=== PATIENT | male | born 1950 | race Caucasian/White ===

== ENCOUNTER 2021-11-08 01:16 | Inpatient (IN) | payer MEDICARE, OTHER ==
[2021-11-08] MEDS ORDERED: Ondansetron PF 4 MG/2 ML Vial ONE ×3 (01:40→13:28)
[2021-11-08] MEDS ORDERED: Morphine 4 MG/ML VIAL ONE ×3 (01:40→05:28)
[2021-11-08 02:15] LABS: ALT (SGPT) 223 U/L (8-55); AST (SGOT) 192 U/L (5-34); Albumin 4.3 g/dL (3.4-4.8); Alkaline Phosphatase 637 U/L (40-110); Anion Gap 20 mmol/L (10-20); BUN (Urea Nitrogen) 35 mg/dL (8.4-25.7); Bilirubin, Total 2.8 mg/dL (0.2-1.2); Calc. Creatinine Clearance 0 mL/min (70-130); Calcium 9.7 mg/dL (7.8-10.44); Carbon Dioxide 24 mmol/L (23-31); Chloride 101 mmol/L (98-107); Globulin 3.9 g/dL (2.4-3.5); Glucose 175 mg/dL (80-115); Hemoglobin 14.7 g/dL (14.0-18.0); Mean Corpuscular HGB CONC 32.7 g/dL (32.0-36.0); Mean Corpuscular Volume 85.7 fL (78.0-98.0); Mean Platelet Volume 6.9 fL (7.4-10.4); Platelet Count 563 thou/uL (130-400); Potassium 4.7 mmol/L (3.5-5.1); Protein, Total 8.2 g/dL (5.8-8.1); RBC Distribution Width 12.1 % (11.5-14.5); Red Blood Cell (RBC) Count 5.24 mill/uL (4.70-6.10); Sodium 140 mmol/L (136-145)
[2021-11-08 02:26] LABS: Bacteria/HPF None Seen HPF (None Seen); Bilirubin Negative (Negative); Blood, Urine 3+ (Negative); Clarity Turbid (Clear); Glucose, Urine (Dipstick) Normal (Negative); Ketone, Urine Trace mg/dL (Negative); Leukocyte Negative Leu/uL (Negative); Nitrite Negative (Negative); Protein, Urine (Dipstick) 100 mg/dL (Neg-Trace); RBC/HPF Greater than 50 HPF (0-3); Specific Gravity, Urine 1.022 (1.002-1.036); Squamous Epithelial 0-3 HPF (0-3); Urobilinogen 3 mg/dL (Less than 2)
[2021-11-08 02:29] LABS: Lipase 2272 U/L (8-78)
[2021-11-08 02:30] LABS: Band 36 % (5-11); Eosinophils 1 % (0-10); Lymphocytes 3 % (21-51); MDiff Complete? YES; Monocytes 3 % (0-10); Neutrophil 56 % (42-75); White Blood Cell (WBC) Count 24.6 thou/uL (4.8-10.8)
[2021-11-08] MEDS ORDERED: Mag-Al 1200 mg/1200 mg/30 ML UDCUP ONE (04:13)
[2021-11-08] MEDS ORDERED: Lidocaine Viscous Sol 2% 15 ml UD Cup ONE (04:13)
[2021-11-08] MEDS ORDERED: Vancomycin 1 GM/200 ML BAG ONE (05:28)
[2021-11-08] MEDS ORDERED: Sodium Chloride 0.9% 1,000 ML IV SCH (06:00)
[2021-11-08] MEDS ORDERED: Ondansetron PF 4 MG/2 ML Vial IVP PRN (06:53)
[2021-11-08] MEDS ORDERED: Morphine 2 MG/ML VIAL SLOW IVP PRN (06:53)
[2021-11-08] MEDS ORDERED: Ondansetron ODT 4 MG TAB PO PRN (06:54)
[2021-11-08] MEDS ORDERED: Acetaminophen 325 MG TAB PO PRN (07:52)
[2021-11-08] MEDS ORDERED: Dextrose 50% Abboject 50 ML SYRINGE SLOW IVP PRN (07:52)
[2021-11-08] MEDS ORDERED: HumaLOG 300 UNITS/3 ML VIAL SC PRN (07:52)
[2021-11-08] MEDS ORDERED: Dextrose 5% in Water 1,000 ML IV PRN (07:52)
[2021-11-08] MEDS ORDERED: Benzonatate 100 MG CAP PO PRN (07:52)
[2021-11-08] MEDS ORDERED: Acetaminophen 650 MG Suppository PR PRN (07:52)
[2021-11-08] MEDS: Heparin 5,000 UNITS/ML VIAL SC SCH ×3 (08:44→20:25)
[2021-11-08] MEDS: Sodium Chloride 0.9% 1,000 ML IV SCH ×2 (08:44→19:36)
[2021-11-08 08:47] LABS: Lactic Acid 2.1 mmol/L (0.5-2.2)
[2021-11-08] MEDS ORDERED: Heparin 5,000 UNITS/ML VIAL SC SCH (09:00)
[2021-11-08] MEDS ORDERED: Pantoprazole 40 MG VIAL IVP SCH (09:00)
[2021-11-08 09:19] LABS: SARS-CoV-2 NAA Rapid Test Not Detected (NotDetected)
[2021-11-08 09:55] LABS: Albumin 3.7 g/dL (3.4-4.8)
[2021-11-08 09:57] LABS: Protein, Total 7.4 g/dL (5.8-8.1)
[2021-11-08 09:59] LABS: Bilirubin, Total 3.3 mg/dL (0.2-1.2)
[2021-11-08 10:12] LABS: ALT (SGPT) 274 U/L (8-55); AST (SGOT) 252 U/L (5-34); Alkaline Phosphatase 530 U/L (40-110); Bilirubin, Direct 2.3 mg/dL (0.1-0.3)
[2021-11-08 10:16] LABS: Lipase 3015 U/L (8-78)
[2021-11-08] MEDS ORDERED: Lidocaine 1% w/Epinephrine 1:100K 20 ML VIAL ONE (10:49)
[2021-11-08] MEDS ORDERED: Bupivacaine PF 0.5% 30 ML VIAL ONE (10:49)
[2021-11-08] MEDS ORDERED: Ioversol 68 % 50 ML VIAL ONE ×2 (10:49→19:05)
[2021-11-08] MEDS ORDERED: Iopamidol 30 ML ONE ×2 (10:50→13:20)
[2021-11-08 10:51] VITALS: BMI 37.3
[2021-11-08] MEDS ORDERED: Fentanyl 250 MCG/5 ML VIAL ONE (11:53)
[2021-11-08 12:21] LABS: Anion Gap 19 mmol/L (10-20); BUN (Urea Nitrogen) 35 mg/dL (8.4-25.7); Calc. Creatinine Clearance 40 mL/min (70-130); Carbon Dioxide 22 mmol/L (23-31); Chloride 101 mmol/L (98-107); Glucose 173 mg/dL (80-115); Potassium 4.6 mmol/L (3.5-5.1); Sodium 137 mmol/L (136-145)
[2021-11-08] MEDS ORDERED: Lidocaine 1% PF 5 ML VIAL ONE (12:32)
[2021-11-08] MEDS ORDERED: Rocuronium Bromide 10 MG/ML (10ML VIAL) ONE (12:32)
[2021-11-08] MEDS ORDERED: Succinylcholine 200 MG/10 ml SYRINGE FS ONE (12:32)
[2021-11-08] MEDS ORDERED: Dexamethasone 20 MG/5 ML VIAL ONE (12:32)
[2021-11-08] MEDS ORDERED: PROPOFOL 200 MG/20 ML VIAL ONE (12:32)
[2021-11-08] MEDS ORDERED: ePHEDrine 50 MG/ML VIAL ONE (12:32)
[2021-11-08] MEDS ORDERED: Indomethacin 50 MG SUPP ONE (13:17)
[2021-11-08] MEDS ORDERED: Vecuronium 10 MG VIAL ONE (13:28)
[2021-11-08] MEDS ORDERED: Glycopyrrolate 0.2 MG/ML 5 ML SYRINGE ONE (13:28)
[2021-11-08] MEDS ORDERED: metroNIDAZOLE 500 MG in Premix Bag 1 BAG IVPB SCH (14:00)
[2021-11-08] MEDS ORDERED: Fentanyl 100 MCG/2 ML VIAL ONE (15:01)
[2021-11-08] MEDS ORDERED: Ondansetron HCl/PF 4 MG/2 ML Vial IVP PRN (15:10)
[2021-11-08] MEDS ORDERED: HYDROmorphone 2 MG/ML VIAL SLOW IVP PRN (15:10)
[2021-11-08] MEDS ORDERED: Promethazine HCl 25 MG/ML VIAL IVPB PRN (15:10)
[2021-11-08] MEDS ORDERED: Promethazine HCl 25 MG/ML VIAL IM PRN (15:10)
[2021-11-08] MEDS: Sodium Chloride 0.45% 1,000 ML IV SCH ×2 (15:59→22:16)
[2021-11-09] MEDS: Sodium Chloride 0.45% 1,000 ML IV SCH ×4 (03:17→20:08)
[2021-11-09] MEDS: Morphine 2 MG/ML VIAL SLOW IVP PRN (03:33)
[2021-11-09 06:28] LABS: Hemoglobin 12.4 g/dL (14.0-18.0); Mean Corpuscular HGB CONC 31.8 g/dL (32.0-36.0); Mean Corpuscular Hemoglobin 27.7 pg (27.0-31.0); Mean Platelet Volume 7.1 fL (7.4-10.4); Platelet Count 427 thou/uL (130-400); RBC Distribution Width 12.1 % (11.5-14.5); Red Blood Cell (RBC) Count 4.47 mill/uL (4.70-6.10)
[2021-11-09 06:44] LABS: Band 11 % (5-11); Lymphocytes 1 % (21-51); MDiff Complete? YES; Monocytes 1 % (0-10); Neutrophil 87 % (42-75)
[2021-11-09 06:53] LABS: ALT (SGPT) 241 U/L (8-55); AST (SGOT) 134 U/L (5-34); Albumin 3.5 g/dL (3.4-4.8); Alkaline Phosphatase 445 U/L (40-110); Anion Gap 16 mmol/L (10-20); BUN (Urea Nitrogen) 42 mg/dL (8.4-25.7); Bilirubin, Total 3.1 mg/dL (0.2-1.2); Calc. Creatinine Clearance 39 mL/min (70-130); Calcium 8.9 mg/dL (7.8-10.44); Carbon Dioxide 21 mmol/L (23-31); Chloride 104 mmol/L (98-107); Globulin 3.6 g/dL (2.4-3.5); Glucose 142 mg/dL (80-115); Lipase 33 U/L (8-78); Potassium 4.6 mmol/L (3.5-5.1); Protein, Total 7.1 g/dL (5.8-8.1); Sodium 136 mmol/L (136-145)
[2021-11-09] MEDS: Heparin 5,000 UNITS/ML VIAL SC SCH ×3 (08:34→20:08)
[2021-11-09] MEDS: Tamsulosin HCl 0.4 MG CAP PO SCH (20:08)
[2021-11-10] MEDS: Morphine 2 MG/ML VIAL SLOW IVP PRN (01:15)
[2021-11-10] MEDS: Sodium Chloride 0.45% 1,000 ML IV SCH ×5 (02:01→23:54)
[2021-11-10 07:30] LABS: Hemoglobin 12.1 g/dL (14.0-18.0); Mean Corpuscular HGB CONC 32.3 g/dL (32.0-36.0); Mean Corpuscular Hemoglobin 28.1 pg (27.0-31.0); Mean Platelet Volume 7.3 fL (7.4-10.4); Platelet Count 430 thou/uL (130-400); RBC Distribution Width 12.2 % (11.5-14.5); White Blood Cell (WBC) Count 20.1 thou/uL (4.8-10.8)
[2021-11-10 07:48] LABS: Phosphorus 2.9 mg/dL (2.3-4.7)
[2021-11-10 07:53] LABS: ALT (SGPT) 148 U/L (8-55); AST (SGOT) 50 U/L (5-34); Albumin 3.2 g/dL (3.4-4.8); Alkaline Phosphatase 345 U/L (40-110); Anion Gap 13 mmol/L (10-20); BUN (Urea Nitrogen) 41 mg/dL (8.4-25.7); Bilirubin, Total 1.1 mg/dL (0.2-1.2); Calc. Creatinine Clearance 43 mL/min (70-130); Calcium 8.7 mg/dL (7.8-10.44); Carbon Dioxide 23 mmol/L (23-31); Chloride 106 mmol/L (98-107); Globulin 3.3 g/dL (2.4-3.5); Glucose 114 mg/dL (80-115); Lipase 58 U/L (8-78); Magnesium 2.1 mg/dL (1.6-2.6); Potassium 4.4 mmol/L (3.5-5.1); Protein, Total 6.5 g/dL (5.8-8.1); Sodium 138 mmol/L (136-145)
[2021-11-10 08:01] LABS: Band 8 % (5-11); Lymphocytes 8 % (21-51); MDiff Complete? YES; Monocytes 3 % (0-10); Neutrophil 81 % (42-75); Platelet Morphology Comment Appears Increased; RBC Morphology Normal
[2021-11-10] MEDS: Heparin 5,000 UNITS/ML VIAL SC SCH ×3 (08:39→20:46)
[2021-11-10] MEDS: Tamsulosin HCl 0.4 MG CAP PO SCH (20:45)
[2021-11-11 06:11] LABS: #Monocytes 0.9 thou/uL (0.11-0.59); #Neutrophils 13.8 thou/uL (1.40-6.50); %Basophils 0.1 % (0.0-1.0); %Lymphocytes 6.3 % (21.0-51.0); %Monocytes 5.8 % (0.0-10.0); %Neutrophils 87.8 % (42.0-75.0); Hemoglobin 11.7 g/dL (14.0-18.0); Mean Corpuscular HGB CONC 33.1 g/dL (32.0-36.0); Mean Corpuscular Hemoglobin 28.5 pg (27.0-31.0); Mean Corpuscular Volume 86.2 fL (78.0-98.0); Mean Platelet Volume 7.7 fL (7.4-10.4); Platelet Count 396 thou/uL (130-400); RBC Distribution Width 12.2 % (11.5-14.5); Red Blood Cell (RBC) Count 4.09 mill/uL (4.70-6.10); White Blood Cell (WBC) Count 15.7 thou/uL (4.8-10.8)
[2021-11-11 06:38] LABS: Anion Gap 15 mmol/L (10-20); BUN (Urea Nitrogen) 36 mg/dL (8.4-25.7); Calc. Creatinine Clearance 46 mL/min (70-130); Calcium 8.9 mg/dL (7.8-10.44); Carbon Dioxide 22 mmol/L (23-31); Chloride 105 mmol/L (98-107); Glucose 87 mg/dL (80-115); Magnesium 1.9 mg/dL (1.6-2.6); Phosphorus 3.6 mg/dL (2.3-4.7); Potassium 4.3 mmol/L (3.5-5.1); Sodium 138 mmol/L (136-145)
[2021-11-11] MEDS ORDERED: hydrALAZINE 20 MG/ML VIAL SLOW IVP PRN (07:55)
[2021-11-11] MEDS ORDERED: Labetalol HCl 100 MG/20 ML VIAL SLOW IVP PRN (07:55)
[2021-11-11] MEDS: Aspirin 300 MG Suppository PR SCH (08:04)
[2021-11-11] MEDS: Heparin 5,000 UNITS/ML VIAL SC SCH ×3 (08:05→21:17)
[2021-11-11] MEDS: Aspirin 81 mg Enteric Coated Tablet PO SCH (08:05)
[2021-11-11] MEDS: Polyethylene Glycol 3350 17 GM Packet PO SCH (08:06)
[2021-11-11] MEDS: Sodium Chloride 0.45% 1,000 ML IV SCH (08:09)
[2021-11-11] MEDS: Sodium Bicarbonate Tab 325 MG TAB PO SCH ×3 (11:30→21:17)
[2021-11-11 12:03] LABS: Creatinine, Urine 46.32 mg/dL (63-166)
[2021-11-11 12:04] LABS: Creatinine, Urine 47.17 mg/dL (63-166); Microalbumin Urine 14.6 mg/dL (0.5-50.0); Microalbumin/Creat Ratio 309.5 mg/g (Less than 30)
[2021-11-11] MEDS ORDERED: Amlodipine 5 MG TAB PO SCH (15:15)
[2021-11-11] MEDS: Tamsulosin HCl 0.4 MG CAP PO SCH (21:17)
[2021-11-12 06:14] LABS: #Lymphocytes 1.1 thou/uL (1.20-3.40); #Monocytes 0.8 thou/uL (0.11-0.59); #Neutrophils 10.3 thou/uL (1.40-6.50); %Basophils 0.1 % (0.0-1.0); %Eosinophils 0.1 % (0.0-10.0); %Lymphocytes 9.2 % (21.0-51.0); %Monocytes 6.8 % (0.0-10.0); %Neutrophils 83.8 % (42.0-75.0); Hemoglobin 11.9 g/dL (14.0-18.0); Mean Corpuscular HGB CONC 32.9 g/dL (32.0-36.0); Mean Corpuscular Hemoglobin 28.4 pg (27.0-31.0); Mean Corpuscular Volume 86.2 fL (78.0-98.0); Mean Platelet Volume 7.1 fL (7.4-10.4); Platelet Count 396 thou/uL (130-400); RBC Distribution Width 12.1 % (11.5-14.5); Red Blood Cell (RBC) Count 4.18 mill/uL (4.70-6.10); White Blood Cell (WBC) Count 12.3 thou/uL (4.8-10.8)
[2021-11-12 06:57] LABS: ALT (SGPT) 87 U/L (8-55); AST (SGOT) 36 U/L (5-34); Albumin 3.2 g/dL (3.4-4.8); Alkaline Phosphatase 289 U/L (40-110); Anion Gap 14 mmol/L (10-20); BUN (Urea Nitrogen) 35 mg/dL (8.4-25.7); Calc. Creatinine Clearance 47 mL/min (70-130); Calcium 8.9 mg/dL (7.8-10.44); Carbon Dioxide 24 mmol/L (23-31); Chloride 104 mmol/L (98-107); Globulin 3.3 g/dL (2.4-3.5); Glucose 93 mg/dL (80-115); Potassium 4.2 mmol/L (3.5-5.1); Protein, Total 6.5 g/dL (5.8-8.1); Sodium 138 mmol/L (136-145)
[2021-11-12] MEDS: Aspirin 300 MG Suppository PR SCH (08:25)
[2021-11-12] MEDS: Sodium Bicarbonate Tab 325 MG TAB PO SCH ×2 (08:26→15:36)
[2021-11-12] MEDS: Aspirin 81 mg Enteric Coated Tablet PO SCH (08:26)
[2021-11-12] MEDS: Heparin 5,000 UNITS/ML VIAL SC SCH ×2 (08:26→15:36)
[2021-11-12] MEDS: Polyethylene Glycol 3350 17 GM Packet PO SCH (08:27)
[2021-11-12] MEDS ORDERED: Amlodipine 5 MG TAB PO SCH (09:00)
[2021-11-12] MEDS ORDERED: Amlodipine 10 MG TAB PO SCH (09:00)
[2021-11-12 12:35] VITALS: BP 171/93; TEMP 97.8
== END 2021-11-12 17:01 | disposition home or self-care (01) | DRG 853 ==
LOC: ERS 01:16 → T4-B 05:55
PROVIDERS: ADMIT Student in an Organized Health Care Education/Training Program; ATTEND Internal Medicine
PROC: 0FT44ZZ Resection of Gallbladder, Percutaneous Endoscopic Approach (ICD-10-PCS; principal; 2021-11-08)
PROC: BF141ZZ Fluoroscopy of Gallbladder, Bile Ducts and Pancreatic Ducts using Low Osmolar Contrast (ICD-10-PCS; 2021-11-08)
PROC: 0FC98ZZ Extirpation of Matter from Common Bile Duct, Via Natural or Artificial Opening Endoscopic (ICD-10-PCS; 2021-11-08)
DX: A41.89 Other specified sepsis (principal); K85.10 Biliary acute pancreatitis without necrosis or infection; N39.0 Urinary tract infection, site not specified; N17.9 Acute kidney failure, unspecified; M62.82 Rhabdomyolysis; K80.66 Calculus of gallbladder and bile duct with acute and chronic cholecystitis without obstruction; E87.2 Acidosis; N18.9 Chronic kidney disease, unspecified; I12.9 Hypertensive chronic kidney disease with stage 1 through stage 4 chronic kidney disease, or unspecified chronic kidney disease; I25.10 Atherosclerotic heart disease of native coronary artery without angina pectoris; R79.89 Other specified abnormal findings of blood chemistry; E11.22 Type 2 diabetes mellitus with diabetic chronic kidney disease; E80.6 Other disorders of bilirubin metabolism; E78.5 Hyperlipidemia, unspecified; R65.20 Severe sepsis without septic shock; G47.30 Sleep apnea, unspecified; M10.9 Gout, unspecified; E11.21 Type 2 diabetes mellitus with diabetic nephropathy; E86.0 Dehydration; E66.9 Obesity, unspecified; D63.1 Anemia in chronic kidney disease; T41.45XA Adverse effect of unspecified anesthetic, initial encounter; N40.1 Benign prostatic hyperplasia with lower urinary tract symptoms; R33.8 Other retention of urine; R31.9 Hematuria, unspecified; Z20.822 Contact with and (suspected) exposure to COVID-19; Z68.37 Body mass index [BMI] 37.0-37.9, adult; Z99.81 Dependence on supplemental oxygen; Z79.82 Long term (current) use of aspirin; Z79.899 Other long term (current) drug therapy; Z79.01 Long term (current) use of anticoagulants; Z79.84 Long term (current) use of oral hypoglycemic drugs; Z88.0 Allergy status to penicillin; Z95.5 Presence of coronary angioplasty implant and graft
CPT/HCPCS: 36415; 36416; 47532; 71045; 74176; 74330; 76705; 76770; 80048; 80053; 81003; 81015; 82043; 82550; 82570; 83605; 83690; 83735; 84100; 84153; 84156; 84300; 84484; 84540; 85025; 87040; 87077; 87086; 87149; 87186; 88304; 93005; 96365; 96368; 96375; 96376; C1713; C9113; J1100; J1610; J1644; J1956; J2270; J2405; J2704; J3010; J3370; J3490; J7050; Q9967; S0020; U0002

== ENCOUNTER 2021-12-22 12:42 | Outpatient (CLI) | payer MEDICARE ==
[2021-12-22 13:27] LABS: Bilirubin Neg (Negative); Blood, Urine 250 (Negative); Clarity Clear (Clear); Glucose, Urine (Dipstick) Normal (Negative); Ketone, Urine Negative (Negative); Leukocyte Negative (Negative); Nitrite Negative (Negative); Protein, Urine (Dipstick) 100 mg/dl (Neg-Trace); Specific Gravity, Urine 1.025 (1.002-1.036); Urobilinogen Normal mg/dL (Less than 2)
[2021-12-22 13:35] LABS: Hemoglobin 13.2 g/dL (13.5-17.5); Mean Corpuscular HGB CONC 32.9 g/dL (32.0-36.0); Mean Corpuscular Volume 82.2 fl (81.2-95.1); Mean Platelet Volume 9.6 fl (7.4-10.4); Platelet Count 299 10x3/uL (150-450); RBC Distribution Width 13.9 % (11.5-14.5); Red Blood Cell (RBC) Count 4.88 10x6/uL (4.32-5.72); White Blood Cell (WBC) Count 9.2 10x3/uL (3.5-10.5)
[2021-12-22 13:37] LABS: Anion Gap 15 mmol/L (10-20); BUN (Urea Nitrogen) 20 mg/dL (8.4-25.7); Calc. Creatinine Clearance 0 mL/min (70-130); Calcium 9.5 mg/dL (7.8-10.44); Carbon Dioxide 26 mmol/L (23-31); Chloride 104 mmol/L (98-107); Glucose 199 mg/dL (80-115); Potassium 4.2 mmol/L (3.5-5.1); Sodium 141 mmol/L (136-145)
[2021-12-22 13:42] LABS: Bacteria/HPF None Seen HPF (None Seen); Squamous Epithelial 0-3 HPF (0-3); WBC/HPF 0-3 HPF (0-3)
== END 2021-12-22 12:43 | disposition home or self-care (01) ==
LOC: LABBT 12:42
PROVIDERS: ATTEND Urology
DX: Z01.818 Encounter for other preprocedural examination (principal); N35.914 Unspecified anterior urethral stricture, male; Z20.822 Contact with and (suspected) exposure to COVID-19
CPT/HCPCS: 80048; 81001; 85027; 87086; 93005; U0003; U0005; 93010

== ENCOUNTER 2021-12-27 06:16 | Day surgery (SDC) | payer MEDICARE ==
[2021-12-26 10:13] VITALS: BMI 37.3
[2021-12-27] MEDS ORDERED: Lidocaine 1% MPF 2 ML VIAL ONE (07:12)
[2021-12-27] MEDS ORDERED: Levofloxacin 500 mg/D5W 100 ml Premix Bag ONE (07:12)
[2021-12-27] MEDS ORDERED: Triamcinolone 40 MG/ML VIAL ONE (07:17)
[2021-12-27] MEDS ORDERED: Iopamidol 30 ML ONE (07:17)
[2021-12-27] MEDS ORDERED: Fentanyl 100 MCG/2 ML VIAL ONE (08:14)
[2021-12-27] MEDS ORDERED: PROPOFOL 200 MG/20 ML VIAL ONE (08:19)
[2021-12-27] MEDS ORDERED: Lidocaine 1% PF 5 ML VIAL ONE (08:19)
[2021-12-27] MEDS ORDERED: Dexamethasone 20 MG/5 ML VIAL ONE (08:19)
[2021-12-27] MEDS ORDERED: Ondansetron PF 4 MG/2 ML Vial ONE (08:19)
[2021-12-27] MEDS ORDERED: Ketorolac Tromethamine 30 MG/ML VIAL ONE (09:45)
[2021-12-27] MEDS ORDERED: Oxybutynin 5 MG TAB ONE (09:45)
[2021-12-27] MEDS ORDERED: Phenazopyridine HCl 100 MG TAB ONE (09:45)
[2021-12-27] MEDS ORDERED: Promethazine HCl 25 MG/ML VIAL ONE (09:56)
== END 2021-12-27 10:50 | disposition home or self-care (01) ==
LOC: SDC 06:16
PROVIDERS: ATTEND Urology
PROC: 0TND8ZZ Release Urethra, Via Natural or Artificial Opening Endoscopic (ICD-10-PCS; principal; 2021-12-27)
PROC: 3E0K83Z Introduction of Anti-inflammatory into Genitourinary Tract, Via Natural or Artificial Opening Endoscopic (ICD-10-PCS; 2021-12-27)
DX: N35.912 Unspecified bulbous urethral stricture, male (principal); N32.89 Other specified disorders of bladder; J45.909 Unspecified asthma, uncomplicated; G47.30 Sleep apnea, unspecified; M10.9 Gout, unspecified; I10 Essential (primary) hypertension; Z79.02 Long term (current) use of antithrombotics/antiplatelets; Z79.82 Long term (current) use of aspirin; Z79.84 Long term (current) use of oral hypoglycemic drugs; Z79.899 Other long term (current) drug therapy; Z88.0 Allergy status to penicillin
CPT/HCPCS: 51610; 74450; J1100; J1885; J1956; J2405; J2550; J2704; J3010; J3301; Q9967